=== PATIENT | female | born 1955 | race African-American/Black ===

== ENCOUNTER 2016-10-10 11:25 | Inpatient (IN) | payer MEDICAID, OTHER ==
[~2016-10-10] VITALS: Ht 170.2 cm; Wt 106.6 kg
--- NOTE | 2016-10-10 11:48 | NUR ---
[employer] MANAGER DISTRIBUTION NOTIFIED ABOUT WALK-IN PT WITH SI - REQUEST FOR 1:1 SITTER, SUICIDAL PRECAUTIONS IMPLEMENTED BY NIR SERVIN.
--- NOTE | 2016-10-10 11:49 | NUR ---
PT IS IN ROOM #2A. DR SESAY EVALUATED THE PT. PT IS RESTING IN THE BED CONFORTABLY UNDER DIRECT SUPERVISION OF NIR SERVIN.
[2016-10-10] MEDS ORDERED: CLON0.1T PO (11:53)
[2016-10-10] MEDS ORDERED: LOSA1TAB35 PO (11:53)
[2016-10-10] MEDS ORDERED: LORA1TAB PO (11:53)
[2016-10-10] MEDS ORDERED: BUSP15TA3 PO (11:53)
[2016-10-10 12:07] LABS: *BILIRUBIN,URIN NEGATIVE (NEGATIVE); *BLOOD, URINE NEGATIVE (NEGATIVE); *CLARITY,URINE CLEAR (CLEAR); *COLOR,URINE YELLOW (YELLOW); *KETONES,URINE NEGATIVE (NEGATIVE); *PROTEIN,URINE NEGATIVE (NEGATIVE); *UROBILINOGEN,URINE 0.2 E.U./dl (NORMAL); LEUKOCYTE ESTERASE ,URINE NEGATIVE (NEGATIVE); NITRITE, URINE NEGATIVE (NEGATIVE); PH,URINE 5.5 (5.0-8.0); UGLUCOSE NEGATIVE (NEGATIVE)
[2016-10-10 12:10] LABS: BASOPHILS # (AUTO) 0.1 K/uL (0.0-0.2); BASOPHILS % (AUTO) 1.2 % (0.0-2.0); EOSINOPHILS # (AUTO) 0.1 K/uL (0.0-0.7); EOSINOPHILS % (AUTO) 2.6 % (0.0-7.0); HEMATOCRIT 38.3 % (37.0-47.0); HEMOGLOBIN 12.9 g/dL (12.0-16.0); LYMPHOCYTES % (AUTO) 21.6 % (20.5-51.5); MEAN CORPUSCULAR HGB CONC 34 g/dL (32.0-37.0); MONOCYTES # (AUTO) 0.5 K/uL (0.1-1.30); MONOCYTES % (AUTO) 10.2 % (0.0-11.0); NEUTROPHILS # (AUTO) 3.1 K/uL (1.8-8.9); NEUTROPHILS % (AUTO) 64.4 % (38.5-71.5); PLATELET COUNT (AUTO) 233 K/uL (150-450); RED BLOOD CELL COUNT(AUTO) 4.31 MIL/uL (4.20-5.40); RED CELL DISTRIBUTION WIDTH 11.9 % (11.5-14.5); WHITE BLOOD COUNT (AUTO) 4.8 K/uL (4.0-11.2)
[2016-10-10 12:14] LABS: *AMPHETAMINE, URINE NEGATIVE (NEGATIVE); *BARBITURATE, URINE NEGATIVE (NEGATIVE); *CANNABINOID, URINE NEGATIVE (NEGATIVE); *COCCAINE, URINE NEGATIVE (NEGATIVE); *OPIATE, URINE NEGATIVE (NEGATIVE); *PHENCYCLIDINE SCREEN,URINE NEGATIVE (NEGATIVE)
[2016-10-10 12:16] LABS: BACTERIA,URINE NONE SEEN /HPF (NONE SEEN); MUCUS,URINE FEW /LPF (0-FEW); RBC,URINE 0-3 /HPF (0-3); SQUAMOUS EPITHELIAL CELL,UR MODERATE /HPF (NONE SEEN); WBC,URINE 0-3 /HPF (0-3)
[2016-10-10 12:21] LABS: CHLORIDE 103 mmol/L (98-107); CREATININE 0.9 mg/dL (0.6-1.3); GFR 77 mL/min (>60); GLUCOSE 99 mg/dL (74-106); POTASSIUM 3.8 mmol/L (3.5-5.1); SODIUM SERUM 142 mmol/L (136-145); UREA NITROGEN, BLOOD 12 mg/dL (7-18)
[2016-10-10 12:23] LABS: CARBON DIOXIDE 34 mmol/L (21-32)
[2016-10-10 12:30] LABS: ETHANOL < 3 MG/DL (0-0)
[2016-10-10 12:35] LABS: THYROID STIMULATING HORMONE 2.058 mIU/mL (0.358-3.740)
[2016-10-10 12:37] LABS: ALANINE AMINOTRANSFERASE 18 U/L (14-59); ALBUMIN 3.8 g/dL (3.4-5.0); ALKALINE PHOSPHATASE 68 U/L (50-136); ASPARTATE AMINOTRANSFERASE 16 U/L (15-37); BILIRUBIN,DIRECT 0.1 mg/dL (0.0-0.2); BILIRUBIN,TOTAL 0.7 mg/dL (0.2-1.0); TOTAL PROTEIN, SERUM 7.9 g/dL (6.4-8.2)
[2016-10-10 12:38] LABS: ACETAMINOPHEN < 2.0 ug/mL (10-30)
--- NOTE | 2016-10-10 13:06 | NUR ---
Spoke with psych juan Jay on the telephone and stated that he will be here to see the pt for eval.
[2016-10-10] MEDS ORDERED: ACETAMINOPHEN ES 500 MG TABLET PO ONE (13:15)
[2016-10-10] MEDS ORDERED: ACETAMINOPHEN ES 500 MG TABLET ONE (13:25)
--- NOTE | 2016-10-10 13:48 | NUR ---
Psych crisis Pierre here to see pt at the bedside for eval.
--- NOTE | 2016-10-10 16:55 | NUR ---
PT WAS EVALUATED BY DALJIT MONTES. PT WAS PLACED ON H0LD DUE TO DANGER TO HERSELF. PT WAS TRANSFERED TO [facility] ROOM # 140. REPORT WAS GIVEN TO RN MHU.
[2016-10-10 17:00] VITALS: BP 128/90
[2016-10-10] MEDS ORDERED: MAGNESIUM HYDROXIDE 30 ML LIQUID UDC PO PRN (17:30)
[2016-10-10] MEDS ORDERED: MAG HYDROX/AL HYDROX/SIMETH 30 ML LIQUID UDC PO PRN (17:30)
--- NOTE | 2016-10-10 17:45 | NUR ---
GPS: Nursing Notes: Admitting Notes: Patient is a walk in to ER and admitted to MHU on 5150 DTS due to having Suicidal thought of killing herself, A/Ox4, depressed mood and sad affect, feeling hopeless, having problem sleeping at night, "I drink a whole bottle of wine and I only slept 2 hours..", her sister Daya notified of admission per patient's request, ambulatory, self care, "My suicidal thoughts, they come and go... I am feeling okay right now..", patient verbally essence for safety, "I will tell the nurse if I do not feel well..", unable to formulate a viable plan for self care, continue with treatment plan.
[2016-10-10 20:21] VITALS: BP 127/91
[2016-10-10] MEDS: TEMAZEPAM 7.5 MG CAPSULE PO PRN (21:15)
[2016-10-10] MEDS: ACETAMINOPHEN 325 MG TABLET PO PRN (21:15)
[2016-10-11] MEDS: CLONAZEPAM 0.5 MG TABLET PO PRN (00:36)
[2016-10-11] MEDS: ACETAMINOPHEN 325 MG TABLET PO PRN ×2 (05:35→20:58)
[2016-10-11 07:57] VITALS: BP 121/92
[2016-10-11] MEDS: LOSARTAN POTASSIUM 50 MG TABLET PO SCH (08:50)
[2016-10-11] MEDS: HYDROCHLOROTHIAZIDE 12.5 MG CAPSULE PO SCH (08:50)
[2016-10-11] MEDS ORDERED: Medication Not On Formulary EA (Losartan/Hydrochlorothiazide (Losartan-Hctz 100-12.5 Mg PO SCH (09:00)
--- NOTE | 2016-10-11 11:46 | NUR ---
Initial discharge instructions:Pt resides at home with her sister[[id number],[place], [place],[address];[phone]].Per pt,she would like to return home upon discharge.Per pt,her sister-Daya lives with her.SW will speak with pt,sister,and MD regarding appropriate discharge planning.SW will form a safe and proper discharge.
[2016-10-11 15:37] VITALS: BP 111/70
[2016-10-11] MEDS: ESCITALOPRAM OXALATE 10 MG TABLET PO SCH (17:25)
[2016-10-11 20:00] VITALS: BP 117/76
[2016-10-11] MEDS: TEMAZEPAM 7.5 MG CAPSULE PO PRN (20:58)
[2016-10-12] MEDS: CLONAZEPAM 0.5 MG TABLET PO PRN (01:19)
[2016-10-12 07:30] VITALS: BP 109/64
[2016-10-12] MEDS: ACETAMINOPHEN 325 MG TABLET PO PRN ×2 (08:24→22:46)
[2016-10-12] MEDS: HYDROCHLOROTHIAZIDE 12.5 MG CAPSULE PO SCH (08:24)
[2016-10-12] MEDS: ESCITALOPRAM OXALATE 10 MG TABLET PO SCH (08:24)
[2016-10-12] MEDS: LOSARTAN POTASSIUM 50 MG TABLET PO SCH (09:00)
[2016-10-12 16:00] VITALS: BP 114/85
[2016-10-12 20:00] VITALS: BP 129/95
[2016-10-12] MEDS: TEMAZEPAM 7.5 MG CAPSULE PO PRN (22:21)
--- NOTE | 2016-10-12 22:22 | NUR ---
GPS: PATIENT C/O INSOMNIA. RESTORIL 7.5 MG PO GIVEN.
--- NOTE | 2016-10-12 22:46 | NUR ---
GPS: PATIENT C/O PAIN. TYLENOL 650 MG PO GIVEN PER PATIENT REQUEST.
--- NOTE | 2016-10-12 23:22 | NUR ---
GPS: PATIENT SLEEPING EYE CLOSE. PRN EFFECTIVE.
--- NOTE | 2016-10-12 23:46 | NUR ---
GPS: PATIENT STATED I AM FEELING BETTER NOW. PRN EFFECTIVE.
--- NOTE | 2016-10-13 06:55 | NUR ---
GPS: REMAIN CALM AND COOPERATIVE. SLEPT 4 HRS AFTER GIVEN RESTORIL 7.5 MG PO. CONTINUE PLAN OF CARE.
[2016-10-13 07:30] VITALS: BP 119/68
[2016-10-13] MEDS: HYDROCHLOROTHIAZIDE 12.5 MG CAPSULE PO SCH (08:30)
[2016-10-13 08:31] VITALS: BP 119/68
[2016-10-13] MEDS: LOSARTAN POTASSIUM 50 MG TABLET PO SCH (08:31)
[2016-10-13] MEDS ORDERED: ESCITALOPRAM OXALATE 10 MG TABLET PO SCH (09:00)
--- NOTE | 2016-10-13 10:36 | NUR ---
DC Note: The Patient will be discharged today back home [[address], [place], [address]; [phone]] via private transportation at 2:00 pm. Spoke with patient's sister, Daya [phone] who is aware and agreeable with discharge plans. Patient's sister will be picking her up.Patient is aware and agreeable with discharge plans. Patient will follow up with Prasanth Seymour ([employer] SUPERVISOR) and Dr.Keyvan Romero ([employer] Out Setter) [[id number] [place] [address]; ]. Patient was provided with additional mental health referrals which included, [facility] Department of Mental Health [phone], [facility] [phone], [facility] [phone], and [facility] [[email or web address] Ur[facility] [phone], etc.
--- NOTE | 2016-10-13 14:00 | NUR ---
1340 DISCHARGE INSTRUCTIONS GIVEN TO THE PATIENT ABOUT HER MEDICATIONS TO CONTINUE AT HOME AND PRESCRIPTION GIVEN, ALSO, REMINDED TO CALL FOR FOLLOW UP APPOINTMENT TO HER PRIMARY DOCTOR AND TO HER PSYCHIATRIST, PATIENT VERBALIZED UNDERSTANDING. ALL VALUABLES AND OTHER BELONGINGS RETURNED AND SIGNED. 1350 pATIENT PICKED UP BY HER SISTER AND WENT HOME VIA PRIVATE CAR, PATIENT MENTALLY/ MEDICALLY STABLE, DENIES SI/HI. NO DELUSION/ NO AVHALLUCINATIONS NOTED.
== END 2016-10-13 13:50 | disposition home or self-care (01) | DRG 751 ==
LOC: ER 11:25 → GPS 16:22
PROVIDERS: ADMIT Psychiatry & Neurology Psychiatry; ATTEND Internal Medicine
DX: F33.2 Major depressive disorder, recurrent severe without psychotic features (principal); R45.851 Suicidal ideations; R00.1 Bradycardia, unspecified; E55.9 Vitamin D deficiency, unspecified; I10 Essential (primary) hypertension; F10.10 Alcohol abuse, uncomplicated; E66.9 Obesity, unspecified; K21.9 Gastro-esophageal reflux disease without esophagitis; Z79.899 Other long term (current) drug therapy; Z87.891 Personal history of nicotine dependence; Z68.36 Body mass index [BMI] 36.0-36.9, adult; F41.9 Anxiety disorder, unspecified; M19.90 Unspecified osteoarthritis, unspecified site
CPT/HCPCS: 36415; 71010; 80307; 84443; 85025; 93005; A4663; G0480-TC; G6040-TC